=== PATIENT | male | born 1940 | race Caucasian/White ===

== ENCOUNTER 2019-03-31 08:24 | Emergency (ER) | payer MEDICARE, BC ==
[2019-03-31] MEDS ORDERED: INDOMETHACIN 25 MG CAPSULE PO ONE (08:38)
[2019-03-31 08:51] LABS: ABSOLUTE NEUTROPHIL COUNT 3.24; BASO % 0.4 % (0-6); EOS % 2.1 % (0-6); GRAN % 61.9 % (47-80); HEMATOCRIT 47.5 % (42.0-52.0); HEMOGLOBIN 15.6 gm/dl (14.0-18.0); LYMPH % 26.1 % (16-45); MEAN CELL VOLUME 89.5 fl (81-97); MEAN CORPUSCULAR HEMOGLOBIN 29.4 pg (27-33); MEAN CORPUSCULAR HGB CONC 32.8 g/dl (32-36); MEAN PLATELET VOLUME 9.7 fl (7.4-10.4); MONO % 9.5 % (0-9); PLATELET COUNT 213 K/uL (130-400); RED BLOOD COUNT 5.31 M/uL (4.40-5.70); RED CELL DISTRIBUTION WIDTH 13.9 % (11.5-14.5); WHITE BLOOD COUNT W/O DIFF 5.2 K/uL (4.2-12.2)
[2019-03-31 09:00] LABS: BLOOD UREA NITROGEN 15 mg/dL (8-23); CREATININE 1.1 mg/dL (0.7-1.2); EST GLOMERULAR FILTRATION RATE > 60 mL/min
[2019-03-31 09:03] LABS: GLUCOSE,RANDOM 125 mg/dL (74-109)
--- NOTE | 2019-03-31 09:29 | Emergency Department Record ---
History of Present Illness - General Chief Complaint: Ankle/Foot Injury Stated Complaint: LT TOE PAIN Time Seen by Provider: 03/31/19 08:35 Source: Patient, RN notes reviewed Mode of Arrival: Ambulatory - History of Present Illness Initial Comments: patient states great toe pain left without trauma and it is not red or irritated but painful to move and no fever Onset/Timin -: Days(s) Place: Home Severity scale (1-10): 6 Improves With: Nothing Worsens With: Nothing Associated Symptoms: Ambulatory - Related Data Previous Rx's Medication Instructions Recorded Indomethacin [Indocin] 25 mg PO TID #20 capsule 03/31/19 Allergies Allergy/AdvReac Type Severity Reaction Status Date / Time Fpijyfm-Wha-Yjl Reductase Allergy Severe MUSCLE PAIN Unverified 01/24/19 07:54 Inhibitor Travel Screening - Travel/Exposure Within Last 30 Days Have you traveled within the last 30 days?: No Past Medical History - SOCIAL HISTORY Smoking Status: Former smoker - RESPIRATORY Hx Respiratory Disorders: No - CARDIOVASCULAR Hx Cardio Disorders: Yes Hx Hypertension: Yes Comment:: high cholesterol - NEURO Hx Neuro Disorders: No - GI Hx GI Disorders: Yes Hx Reflux: Yes Hx Liver Disease: Yes (fatty liver) Hx Wt Loss/Wt Gain: Yes (special low cholesterol diet) Hx of Polyps: Yes - Hx Genitourinary Disorders: No - ENDOCRINE Hx Endocrine Disorders: No - MUSCULOSKELETAL Hx Musculoskeletal Disorders: Yes Hx Arthritis: Yes (B knees-osteoarthritis) - PSYCH Hx Psych Problems: No - HEMATOLOGY/ONCOLOGY Hx Hematology/Oncology Disorders: Yes Hx Cancer: Yes (skin cancer on top of head) Family Medical History Any Significant Family History?: No Family Hx Comment (NOT TO BE USED IN PLACE OF ITEMS BELOW): family hx unknown Course Vital Signs 03/31/19 08:30 Temperature 98.0 F Pulse Rate 73 Respiratory 20 Rate Blood Pressure 175/99 Pulse Ox 99 Medical Decision Making - Lab Data Result diagrams: 03/31/19 08:45 03/31/19 08:45 Lab Results 03/31/19 03/31/19 Range/Units 08:45 08:45 WBC 5.2 (4.2-12.2) K/uL RBC 5.31 (4.40-5.70) M/uL Hgb 15.6 (14.0-18.0) gm/dl Hct 47.5 (42.0-52.0) % MCV 89.5 (81-97) fl MCH 29.4 (27-33) pg MCHC 32.8 (32-36) g/dl RDW 13.9 (11.5-14.5) % Plt Count 213 (130-400) K/uL MPV 9.7 (7.4-10.4) fl Gran % 61.9 (47-80) % Lymphocytes % 26.1 (16-45) % Monocytes % 9.5 H (0-9) % Eosinophils % 2.1 (0-6) % Basophils % 0.4 (0-6) % Absolute Neutrophils 3.24 Sodium 141 (136-145) mmol/L Potassium 4.2 (3.4-4.5) mmol/L Chloride 105 (98-107) mmol/L Carbon Dioxide 26.0 (22-29) mmol/L Anion Gap 10.0 (7-16) BUN 15 (8-23) mg/dL Creatinine 1.1 (0.7-1.2) mg/dL Estimated GFR > 60 mL/min Random Glucose 125 H (74-109) mg/dL Uric Acid 5.30 (3.4-7.0) mg/dL Calcium 9.5 (8.8-10.2) mg/dL Disposition Clinical Impression: Gout Qualifiers: Gout site: toe Gout etiology: idiopathic Chronicity: acute Laterality: left Qualified Code(s): M10.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
== END 2019-03-31 09:58 | disposition home or self-care (01) ==
LOC: ER 08:24
DX: M10.072 Idiopathic gout, left ankle and foot (principal); M79.675 Pain in left toe(s); I10 Essential (primary) hypertension; Z87.891 Personal history of nicotine dependence
CPT/HCPCS: 80048; 84550; 85025; 99283

== ENCOUNTER 2019-04-09 10:27 | Emergency (ER) | payer MEDICARE, BC ==
--- NOTE | 2019-04-09 12:06 | RADIOLOGY REPORT ---
EXAMINATION: Right Ribs with Frontal View Chest, Minimum Three Views EXAM DATE: 04/09/2019 11:49 AM TECHNIQUE: AP and oblique views of the right ribs with frontal view of the chest INDICATION: fall COMPARISON: None ENCOUNTER: Initial FINDINGS: Chest: The heart, mediastinum and pulmonary vasculature are normal. No lung consolidation or pleu ral effusions are present. Right ribs: There is no acute rib fracture. There is no lytic or blastic bone lesion. IMPRESSION: Normal chest. No rib fractures. Dictated by: Edil Sherwood MD on 04/09/2019 12:04 PM. .
[2019-04-09] MEDS ORDERED: HYDROCODONE/APAP 5/325MG TABLET PO ONE (12:21)
--- NOTE | 2019-04-09 12:25 | Emergency Department Record ---
History of Present Illness - General Chief Complaint: Fall Injury Stated Complaint: I THINK I BROKE A RIB Time Seen by Provider: 04/09/19 10:52 Source: Patient Mode of Arrival: Ambulatory - History of Present Illness Initial Comments: pt tripped over neighbor's dog injuring his r chest Complaint: Fall Onset/Timin -: Minutes(s) When Fall Occurred: Just prior to arrival Fall Witnessed: No Place Fall Occurred: Home Loss of Consciousness: None Prolonged Down Time?: No Symptoms Prior to Fall: None Location: Chest Severity scale (1-10): 8 Quality: Sharp Context: Tripped/slipped - Bernardo Coma Scale Eye Response: (4) Open spontaneously Motor Response: (6) Obeys commands Verbal Response: (5) Oriented [place] Total: 15 - Related Data Previous Rx's Medication Instructions Recorded Indomethacin [Indocin] 25 mg PO TID #20 capsule 03/31/19 Hydrocodone/Acetaminophen [[place] 0.5 - 1 tab PO TID PRN #7 tab 04/09/19 5mg/325mg] Allergies Allergy/AdvReac Type Severity Reaction Status Date / Time Pzcydpq-Jgm-Rnj Reductase Allergy Severe MUSCLE PAIN Unverified 04/04/19 10:31 Inhibitor Travel Screening - Travel/Exposure Within Last 30 Days Have you traveled within the last 30 days?: No Review of Systems Reviewed: No additional complaints except as noted below Constitutional: Reports: As per HPI. Denies: Chills, Fever, Malaise, Night sweats, Weakness, Weight change Eyes: Reports: As per HPI. Denies: Eye discharge, Eye pain, Photophobia, Vision change ENT: Reports: As per HPI. Denies: Congestion, Dental pain, Ear pain, Epistaxis, Hearing loss, Throat pain Respiratory: Reports: As per HPI. Denies: Cough, Dyspnea, Hemoptysis, Stridor, Wheezes Cardiovascular: Reports: As per HPI, Chest pain. Denies: Arrhythmia, Dyspnea on exertion, Edema, Murmurs, Orthopnea, Palpitations, Paroxysmal nocturnal dyspnea, Rheumatic Fever, Syncope Endocrine: Reports: As per HPI. Denies: Fatigue, Heat or cold intolerance, Polydipsia, Polyuria Gastrointestinal: Reports: As per HPI. Denies: Abdominal pain, Constipation, Diarrhea, Hematemesis, Hematochezia, Melena, Nausea, Vomiting Genitourinary: Reports: As per HPI. Denies: Dysuria, Frequency, Hematuria, Incontinence, Retention, Testicular pain, Testicular mass, Urgency Musculoskeletal: Reports: As per HPI. Denies: Arthralgia, Back pain, Gout, Joint swelling, Myalgia, Neck pain Skin: Reports: As per HPI. Denies: Bruising, Change in color, Change in hair/nails, Lesions, Pruritus, Rash Neurological: Reports: As per HPI. Denies: Abnormal gait, Confusion, Headache, Numbness, Paresthesias, Seizure, Tingling, Tremors, Vertigo, Weakness Psychiatric: Reports: As per HPI. Denies: Anxiety, Auditory hallucinations, Depression, Homicidal thoughts, Suicidal thoughts, Visual hallucinations Hematological/Lymphatic: Reports: As per HPI. Denies: Anemia, Blood Clots, Easy bleeding, Easy bruising, Swollen glands Past Medical History - SOCIAL HISTORY Smoking Status: Former smoker - RESPIRATORY Hx Respiratory Disorders: No - CARDIOVASCULAR Hx Cardio Disorders: Yes Hx Hypertension: Yes Comment:: high cholesterol - NEURO Hx Neuro Disorders: No - GI Hx GI Disorders: Yes Hx Reflux: Yes Hx Liver Disease: Yes (fatty liver) Hx Wt Loss/Wt Gain: Yes (special low cholesterol diet) Hx of Polyps: Yes - Hx Genitourinary Disorders: No - ENDOCRINE Hx Endocrine Disorders: No - MUSCULOSKELETAL Hx Musculoskeletal Disorders: Yes Hx Arthritis: Yes (B knees-osteoarthritis) - PSYCH Hx Psych Problems: No - HEMATOLOGY/ONCOLOGY Hx Hematology/Oncology Disorders: Yes Hx Cancer: Yes (skin cancer on top of head) Family Medical History Any Significant Family History?: No Family Hx Comment (NOT TO BE USED IN PLACE OF ITEMS BELOW): family hx unknown Physical Exam - General General Appearance: Alert, Oriented x3, Cooperative, No acute distress - Head Head exam: Normal inspection - Eye Eye exam: Normal appearance, PERRL, EOMI Pupils: Normal accommodation - ENT ENT exam: Normal exam, Mucous membranes moist, Normal external ear exam, Normal orophraynx, TM's normal bilaterally Ear exam: Normal external inspection. negative: External canal tenderness Nasal Exam: Normal inspection. negative: Discharge, Sinus tenderness Mouth exam: Normal external inspection, Tongue normal Teeth exam: Normal inspection. negative: Dental caries Throat exam: Normal inspection. negative: Tonsillar erythema, Tonsillar exudate - Neck Neck exam: Normal inspection, Full ROM. negative: Tenderness - Respiratory Respiratory exam: Normal lung sounds bilaterally, Chest wall tenderness. negative: Respiratory distress - Cardiovascular Cardiovascular Exam: Regular rate, Normal rhythm, Normal heart sounds - GI/Abdominal GI/Abdominal exam: Soft, Normal bowel sounds. negative: Tenderness - Rectal Rectal exam: Deferred - exam: Deferred - Extremities Extremities exam: Normal inspection, Full ROM, Normal capillary refill. negative: Tenderness - Back Back exam: Reports: Normal inspection, Full ROM. Denies: Muscle spasm, Rash noted, Tenderness - Neurological Neurological exam: Alert, CN II-XII intact, Normal gait, Oriented X3 - Psychiatric Psychiatric exam: Normal affect, Normal mood - Skin Skin exam: Dry, Intact, Normal color, Warm Course Vital Signs 04/09/19 10:39 Temperature 97.4 F L Pulse Rate 83 Respiratory 22 Rate Blood Pressure 198/138 Pulse Ox 93 L Disposition Disposition: Discharge Clinical Impression: Contusion of rib on right side Qualifiers: Encounter type: initial encounter Qualified Code(s): S20.211A - Contusion of right front wall of thorax, initial encounter Disposition: Home, Self-Care Condition: (1) Good Instructions: Fall Prevention for Older Adults (ED), Rib Contusion (ED) Additional Instructions: follow up with family doctor. return sooner if worse. ice to sore area. motrin with food for pain. deep inspiration times 5 an hour Prescriptions: Hydrocodone/Acetaminophen [[place] 5mg/325mg] 0.5 - 1 tab PO TID PRN #7 tab PRN Reason: Pain - General Forms: Patient Portal Access Quality - Quality Measures Quality Measures: N/A - Blood Pressure Screening Does Patient Have Any of the Following: Active Dx of HTN Blood Pressure Classification: Hypertensive Reading Systolic Measurement: 198 Diastolic Measurement: 138 Screening for High Blood Pressure: Patient Exclusion, Hx of HTN [G9744]
[2019-04-09] MEDS ORDERED: CLONIDINE HCL 0.1 MG TABLET PO ONE (12:32)
[2019-04-09] MEDS ORDERED: KETOROLAC 30 MG/ML VIAL IM ONE (12:40)
== END 2019-04-09 13:33 | disposition home or self-care (01) ==
LOC: ER 10:27
DX: S20.211A Contusion of right front wall of thorax, initial encounter (principal); W01.0XXA Fall on same level from slipping, tripping and stumbling without subsequent striking against object, initial encounter; Y92.009 Unspecified place in unspecified non-institutional (private) residence as the place of occurrence of the external cause; I10 Essential (primary) hypertension; Z87.891 Personal history of nicotine dependence
CPT/HCPCS: 96372; 99284; J1885

== ENCOUNTER 2019-06-16 05:10 | Emergency (ER) | payer MEDICARE, BC ==
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
[2019-06-16 05:33] LABS: ABSOLUTE NEUTROPHIL COUNT 3.01; BASO % 0.4 % (0-6); EOS % 4.4 % (0-6); GRAN % 53.5 % (47-80); HEMOGLOBIN 15.7 gm/dl (14.0-18.0); LYMPH % 34.1 % (16-45); MEAN CELL VOLUME 88.9 fl (81-97); MEAN CORPUSCULAR HEMOGLOBIN 29.1 pg (27-33); MEAN CORPUSCULAR HGB CONC 32.7 g/dl (32-36); MEAN PLATELET VOLUME 9.6 fl (7.4-10.4); MONO % 7.6 % (0-9); PLATELET COUNT 199 K/uL (130-400); RED CELL DISTRIBUTION WIDTH 14.1 % (11.5-14.5); WHITE BLOOD COUNT W/O DIFF 5.6 K/uL (4.2-12.2)
[2019-06-16 05:49] LABS: BLOOD UREA NITROGEN 12 mg/dL (8-23); CREATININE 1.2 mg/dL (0.7-1.2); EST GLOMERULAR FILTRATION RATE > 60 mL/min
[2019-06-16 05:50] LABS: TOTAL PROTEIN 6.4 g/dL (6.6-8.7)
[2019-06-16 05:51] LABS: GLUCOSE,RANDOM 165 mg/dL (74-109)
[2019-06-16 05:54] LABS: ALBUMIN 4.3 g/dL (4.0-5.0); ALKALINE PHOSPHATASE 105 U/L (40-129); ALT/SGPT 23 U/L (<41); AST/SGOT 21 U/L (10.0-50.0)
--- NOTE | 2019-06-16 05:54 | CT SCAN REPORT ---
EXAMINATION: CT Head without IV Contrast EXAM DATE: 06/16/2019 5:50 AM TECHNIQUE: Standard protocol CT images of the head were obtained without intravenous contrast. Herrera l and sagittal reconstructed images were created. INDICATION: R arm numbness, resolved. COMPARISON: None HAND DOMINANCE: Unknown. ENCOUNTER: Not applicable FINDINGS: 1. There is no intracranial mass, midline shift, extraaxial fluid collection or hemorrhage. 2. The ventricles, sulci and cisterns are normal. 3. Periventricular small vessel ischemia. Mild ventriculomegaly likely related to cortical atrophy. 4. There is no fracture. 5. The visualized aspects of the orbits, paranasal sinuses, and mastoid air cells are normal. IMPRESSION: Periventricular small vessel ischemia. Cortical atrophy and mild ventricular megaly. Dictated by: Sammi Guzman DO on 06/16/2019 5:51 AM. .
[2019-06-16] MEDS ORDERED: ASPIRIN 325 MG TABLET PO ONE (05:57)
== END 2019-06-16 06:55 | disposition short-term general hospital (02) ==
LOC: ER 05:10
DX: G45.9 Transient cerebral ischemic attack, unspecified (principal); I10 Essential (primary) hypertension; Z87.891 Personal history of nicotine dependence
CPT/HCPCS: 70450; 80053; 85025; 93005; 93010; 99285